=== PATIENT | female | born 1945 | race Caucasian/White ===

== ENCOUNTER 2021-05-28 10:52 | Emergency (ER) | payer OTHER, MEDICARE, BC | END 2021-05-28 12:30 | disposition home or self-care (01) | LOC: CSHERS 10:52 | DX: S00.83XA Contusion of other part of head, initial encounter (principal); E78.5 Hyperlipidemia, unspecified; W01.0XXA Fall on same level from slipping, tripping and stumbling without subsequent striking against object, initial encounter | CPT/HCPCS: 70450 ==

== ENCOUNTER 2022-06-23 10:22 | Outpatient (CLI) | payer MEDICARE, BC | END 2022-06-23 10:23 | disposition home or self-care (01) | LOC: CSHMAMMO 10:22 | PROVIDERS: ATTEND Family Medicine | DX: M81.0 Age-related osteoporosis without current pathological fracture (principal) | CPT/HCPCS: 77080 ==

== ENCOUNTER 2023-01-04 08:03 | Outpatient (CLI) | payer MEDICARE, BC ==
[2023-01-04] MEDS ORDERED: Iopamidol 300 61% 100 ML VIAL FS ONE (09:11)
== END 2023-01-04 08:04 | disposition home or self-care (01) ==
LOC: CSHCT 08:03
PROVIDERS: ATTEND Physician Assistant Medical
DX: R10.31 Right lower quadrant pain (principal); R14.0 Abdominal distension (gaseous); N39.0 Urinary tract infection, site not specified; R30.0 Dysuria; K40.90 Unilateral inguinal hernia, without obstruction or gangrene, not specified as recurrent; K43.9 Ventral hernia without obstruction or gangrene; N28.9 Disorder of kidney and ureter, unspecified; M79.89 Other specified soft tissue disorders
CPT/HCPCS: 74177; 82565

== ENCOUNTER 2024-07-18 12:44 | Outpatient (CLI) | payer MEDICARE | END 2024-07-18 12:45 | disposition home or self-care (01) | LOC: CSHMAMMO 12:44 | PROVIDERS: ATTEND Family Medicine Sports Medicine | DX: Z78.0 Asymptomatic menopausal state (principal); M81.0 Age-related osteoporosis without current pathological fracture; M85.88 Other specified disorders of bone density and structure, other site | CPT/HCPCS: 77080 ==

== ENCOUNTER 2025-01-03 14:14 | Outpatient (CLI) | payer MEDICARE | END 2025-01-03 14:15 | disposition home or self-care (01) | LOC: CSHMAMMO 14:14 | PROVIDERS: ATTEND Family Medicine Sports Medicine | DX: Z12.31 Encounter for screening mammogram for malignant neoplasm of breast (principal); Z80.3 Family history of malignant neoplasm of breast | CPT/HCPCS: 77063; 77067 ==